=== PATIENT | female | born 1970 | race African-American/Black ===

== ENCOUNTER 2018-02-18 12:05 | Inpatient (IN) | payer OTHER ==
[~2018-02-18] VITALS: Ht 162.6 cm; Wt 80.4 kg
[2018-02-18] VITALS (7 sets, daily range): BP systolic 103–128; BP diastolic 61–84
[~2018-02-18 12:05] MED LIST: CERT400K SQ; METH2.5T PO; METH25VI27 IJ; POTA20TA12 PO
[2018-02-18] MEDS ORDERED: ONDANSETRON PF 4 MG/2 ML VIAL. IV PRN (13:00)
[2018-02-18 13:06] LABS: BASO # 0.1 x10^3/uL (0.0-0.2); BASO % 1 % (0-3); EOS # 0.1 x10^3/uL (0.0-0.7); EOS % 1 % (0-3); LYMPH # 1.6 x10^3/uL (1.0-4.8); LYMPH % 13 % (24-48); MEAN CORPUSCULAR HEMOGLOBIN 31 pg (25-35); MEAN CORPUSCULAR HGB CONC 35 g/dL (31-37); MEAN CORPUSCULAR VOLUME 89 fL (79-100); MONO % 8 % (0-9); NEUT # 9.8 x10^3uL (1.8-7.7); NEUT % 79 % (31-73); PLATELET COUNT 231 x10^3/uL (140-400); RED BLOOD COUNT 3.25 x10^6/uL (3.50-5.40); RED CELL DISTRIBUTION WIDTH 12.9 % (11.5-14.5); WHITE BLOOD COUNT 12.5 x10^3/uL (4.0-11.0)
--- NOTE | 2018-02-18 13:17 | NUR ---
NSG NOTE; ADMISSION DIRECT ADMIT TO ROOM 117 AT 1220 VIA W/C ACCOMP BY SELF FROM DR BALLARD'S OFFICE PT HAS HAD CONSTANT LOWER ABD PAIN X 1 WEEK AND BEEN VOMITING ON ALL FOOD X 6 DAYS. SHE HAS BEEN ABLE TO KEEP SIPS OF WATER DOWN. SHE HAS HAD DIARRHEA FOR 2 DAYS AND HAS BEEN PLACED IN C DIFF PRECAUTIONS
[2018-02-18 13:19] LABS: ALBUMIN 2.7 g/dL (3.4-5.0); ALBUMIN/GLOBULIN RATIO 0.5 (1.0-1.7); CALCIUM 8.8 mg/dL (8.5-10.1); CREATININE 1.3 mg/dL (0.6-1.0); GFR 52.7; POTASSIUM 3.3 mmol/L (3.5-5.1); TOTAL PROTEIN 8.5 g/dL (6.4-8.2)
[2018-02-18] MEDS: IV NORMAL SALINE 1,000ML 1,000 ML IV SCH ×2 (13:26→21:21)
[2018-02-18] MEDS ORDERED: IOHEXOL 300 MG/ML 75 ML VIAL. IV ONE ×2 (14:00→19:30)
[2018-02-18] MEDS ORDERED: IOHEXOL 240 MG/ML 50ML VIAL. PO ONE (14:00)
--- NOTE | 2018-02-18 14:11 | NUR ---
NSG NOTE; POSITIVE SIRS AND SEPSIS SCORES CALLED TO DR BALLARD AT 1408. NEW ANTIBIOTIC ORDERS GIVEN
[2018-02-18] MEDS ORDERED: VANCOMYCIN PER PHARMACY MC PRN (14:15)
--- NOTE | 2018-02-18 14:57 | NUR ---
Pharmacy Vancomycin Dosing Note S:Consulted to monitor and dose vancomycin started 02/18/18. O:POORNIMA ARTEAGA is a 47 year old F with Empiric . Height: 5 feet, 4 inches Weight: 79.430972 kg Cameron Body Weight: 54.70 Adjusted Body Weight: 64.46 Dosing Weight: Actual Other Antibiotics: LEVOFLOXACIN LABS: Last BUN: 11 Last Creatinine: 1.3 Creatinine Clearance: 53.26 Last WBC: 12.5 Last Platelets: 231 Vancomycin Dosing: Loading Dose: 2000 mg x1 Dosing Weight: Actual Target Trough: 10-20 A: Based on: Actual weight and renal function P: 1. Begin Vancomycin 1250 mg IV q24h 2. Follow up Trough level on 02/20/18 at 1530 3. Pharmacy will continue to monitor, follow and adjust therapy as needed. DIMAS LOERA, 02/18/18 [id number]
--- NOTE | 2018-02-18 14:58 | NUR ---
Pharmacy Levofloxacin Dosing Note: Levofloxacin 750mg IV q24hr. CrCl is 53.26. Pharmacy will continue to monitor.
--- NOTE | 2018-02-18 15:36 | RAD ---
CT ABD PELV W/ORAL IV CONTRAST Indication: abd pain, fever, n/v/d for 1 weeks, dehydration Exposure: One or more of the following individualized dose reduction techniques were utilized for this examination: 1. Automated exposure control 2. Adjustment of the mA and/or kV according to patient size 3. Use of iterative reconstruction technique. Comparison: None are available. Contrast: Intravenous contrast was given. Oral contrast was given. FINDINGS: Lower thorax: Mild atelectasis/infiltrate in both lung bases. Liver: Unremarkable Spleen: Unremarkable Pancreas: No acute peripancreatic inflammatory changes Adrenals: No mass Kidneys: Symmetric enhancement. The left lower pole renal collecting system is slightly dilated as compared with the upper pole. Right collecting system is not dilated. The ureters do not appear dilated but are difficult to follow. Gallbladder: No calcified stone Lymph nodes: No significant enlargement Vessels: Aorta is nonaneurysmal. GI tract: No evidence of acute colitis. No evidence of bowel obstruction. Appendix is normal. Reproductive organs: The uterus appears somewhat large. There is a complex cystic-type lesion in the left adnexa. This contains a calcification. The largest hypodense pocket measures 3.6 cm diameter and measures greater than simple fluid, about 28 Hounsfield units. The left adnexal lesion altogether measures about 7 cm long axis. There is a tubular hypodense lesion of the right adnexa, also measures greater than simple fluid. Urinary bladder: Unremarkable. Peritoneum: Mild free pelvic fluid. Abdominal wall:Unremarkable Spine: No significant subluxation or acute fracture. Bones: No destructive process identified. IMPRESSION: 1. There is a complex mass in the left adnexa, with complex hypodense contents as well as a calcification. Smaller hypodense tubular lesion seen in the right adnexa. Findings are nonspecific. In correlation with free pelvic fluid, these could represent tubo-ovarian abscesses, left greater than right. Cystic neoplasm of the ovaries could be considered. Recommend pelvic ultrasound. Findings discussed with Lila, the patient's nurse, at 3:30 PM on February 18, 2018. 2. Mild dilatation of the lower pole the left renal collecting system. This could represent a duplicated system although reason for dilatation of the lower pole is not known. No evidence of obstructing ureteric calculus. If of concern, further evaluation could be obtained with CT urogram. 3. Mild atelectasis/infiltrate in both lung bases. Electronically signed by: Hermann Madison MD (02/18/2018 3:33 PM) [id number]
[2018-02-18] MEDS ORDERED: VANCOMYCIN 2 GM in IV NORMAL SALINE 500ML 500 ML IV ONE (16:00)
--- NOTE | 2018-02-18 18:40 | RAD ---
Pelvic ultrasound History: Left adnexal mass on CT. Comparison: CT abdomen pelvis February 18, 2018. Technique: Transabdominal ultrasound was performed to evaluate the uterine fundus. Endovaginal imaging was performed to evaluate optimally the endometrial canal and lower uterine segment. TRANSABDOMINAL IMAGING Findings: Uterus is enlarged. Uterine length is 12.7 cm. Posterior uterine body demonstrates a large 7 cm leiomyoma. Anterior uterine body demonstrates additional leiomyoma measuring 4.1 cm. Endometrial stripe is estimated at 9 mm Fluid-filled left fallopian tube is seen. Left ovary measures 3.3 x 4.7 x 5.9 cm and is unremarkable. Right ovary measures 2.3 x 3.0 x 3.2 cm and is unremarkable. Left ovary demonstrates normal vascular flow upon Doppler interrogation. ENDOVAGINAL IMAGING Findings: Endometrial thickness is 7 mm. Posterior uterine body demonstrates 5.3 cm leiomyoma. The anterior uterine body demonstrates 4.5 cm leiomyoma. Right ovary measures 2.6 x 3.4 x 5.0 cm and demonstrates a few follicles. Left ovary measures 4.3 x 3.0 x 4.4 cm and demonstrates 3.2 cm cyst. Both ovaries demonstrate normal vascular flow upon Doppler interrogation and are without evidence of torsion. With endovaginal imaging, there appears to be fluid-filled left fallopian tube. Impression: 1. Bilateral hydrosalpinges. Correlate with physical examination regarding possibility of pelvic inflammatory disease. 2. Bilateral ovaries have unremarkable appearance. 3. Uterine leiomyomata. Electronically signed by: Hermann Gonzalez MD (02/18/2018 6:37 PM) [facility]
[2018-02-18] MEDS ORDERED: ACETAMINOPHEN 325 MG TABLET PO ONE (18:58)
[2018-02-18] MEDS ORDERED: MORPHINE SULFATE 2 MG/ML DISP.SYRIN. IV PRN (19:00)
[2018-02-18] MEDS: ACETAMINOPHEN 325 MG TABLET PO PRN (19:02)
[2018-02-18] MEDS ORDERED: CONTRAST GIVEN MC PRN (19:30)
--- NOTE | 2018-02-18 20:15 | NUR ---
1899: Pt transferred from room 117 to ICU bed 3. Upgraded to ICU status. Dx: sepsis, ABD pain, N/V. Pt A/Ox3, flat affect. Placed on monitor showing sinus tach with HR in the 100's. Reports feeling quite weak with significant lower abd pain. Temp elevated at 102.4. Fentanyl and tylenol given per prn orders. Chang placed per order, pt tolerated well. Immediate return of 750cc straw colored urine, sediment present. Sample sent to lab. Pt oriented to unit and POC, V/U. Will monitor closely. 1999: Dr. Lennon made aware of continued positive sepsis screen. New orders received.
[2018-02-18] MEDS ORDERED: ENOXAPARIN ** NOTE DOSE ** SYRINGE SQ SCH (21:00)
[2018-02-18] MEDS: ENOXAPARIN ** NOTE DOSE ** SYRINGE SQ SCH ×2 (21:00→21:22)
[2018-02-18 21:38] LABS: BILIRUBIN,URINE NEG (NEG); CLARITY,URINE HAZY; COLOR,URINE YELLOW; GLUCOSE,URINE NEG (NEG); NITRITE,URINE NEG (NEG); UROBILINOGEN,URINE 1 mg/dL (0.2 mg/dL)
[2018-02-18 21:39] LABS: AMORPHOUS SEDIMENT,UR PRESENT /HPF; BACTERIA,URINE 0 /HPF (0-FEW); SQUAMOUS EPITHELIAL CELL,UR MOD /LPF
[2018-02-18] MEDS: DOXYCYCLINE HYCLATE 100 MG in IV DEXTROSE 5% 100 ML IV SCH (23:09)
[2018-02-19] VITALS (10 sets, daily range): BP systolic 101–115; BP diastolic 48–72
[2018-02-19 06:26] LABS: CALCIUM 7.5 mg/dL (8.5-10.1); CREATININE 1.1 mg/dL (0.6-1.0); GFR 63.9; POTASSIUM 3.3 mmol/L (3.5-5.1)
[2018-02-19] MEDS: IV NORMAL SALINE 1,000ML 1,000 ML IV SCH ×2 (06:37→08:28)
[2018-02-19] MEDS: ACETAMINOPHEN 325 MG TABLET PO PRN (06:37)
[2018-02-19 06:44] LABS: BASO % 0 % (0-3); EOS # 0.1 x10^3/uL (0.0-0.7); EOS % 1 % (0-3); HEMATOCRIT 25.1 % (36.0-47.0); HEMOGLOBIN 8.3 g/dL (12.0-15.5); LYMPH # 1.6 x10^3/uL (1.0-4.8); LYMPH % 10 % (24-48); MEAN CORPUSCULAR HEMOGLOBIN 30 pg (25-35); MEAN CORPUSCULAR HGB CONC 33 g/dL (31-37); MEAN CORPUSCULAR VOLUME 91 fL (79-100); MONO # 1.1 x10^3/uL (0.0-1.1); MONO % 7 % (0-9); NEUT # 13.1 x10^3uL (1.8-7.7); NEUT % 83 % (31-73); PLATELET COUNT 201 x10^3/uL (140-400); RED BLOOD COUNT 2.76 x10^6/uL (3.50-5.40); RED CELL DISTRIBUTION WIDTH 13.3 % (11.5-14.5); WHITE BLOOD COUNT 15.8 x10^3/uL (4.0-11.0)
[2018-02-19] MEDS ORDERED: POTASSIUM CHLORIDE 20 MEQ TABLET.ER. PO SCH (08:00)
[2018-02-19 08:21] LABS: % BANDS 2 % (0-9); % BASOS 0 % (0-3); % EOS 0 % (0-5); % LYMPHS 13 % (24-48); % MONOS 3 % (0-10); % SEGS 82 % (35-66); HYPOCHROMIA PRESENT; OVALOCYTES MANY; PLATELET CLUMP PRESENT; PLT ESTIMATE ADEQUATE (ADEQUATE); POIKILOCYTOSIS PRESENT
[2018-02-19] MEDS: ENOXAPARIN ** NOTE DOSE ** SYRINGE SQ SCH (08:27)
[2018-02-19] MEDS: DOXYCYCLINE HYCLATE 100 MG in IV DEXTROSE 5% 100 ML IV SCH (08:28)
--- NOTE | 2018-02-19 09:48 | RAD ---
PQRS Compliance Statement: One or more of the following individualized dose reduction techniques were utilized for this examination: 1. Automated exposure control 2. Adjustment of the mA and/or kV according to patient size 3. Use of iterative reconstruction technique CT angiography chest with contrast 02/19/2018 INDICATION: Shortness of breath with elevated d-dimer. COMPARISON: None available. TECHNIQUE: Multiple axial CT images of the chest were obtained after the intravenous demonstration of 75 cc Omnipaque 300 per pulmonary embolism protocol. Coronal and sagittal reformats are provided. Maximum intensity projection images of the thoracic vasculature are provided. FINDINGS: Thyroid gland is normal in appearance. There are no pathologically enlarged axillary, mediastinal or hilar lymph nodes. Heart size is within normal limits. There is no pericardial effusion. Thoracic aorta is normal in course and caliber. There is a hypoattenuating lesion in the pericardiophrenic recess measuring 3.3 x 3.2 cm most suggestive of a pericardial cyst, benign congenital anomaly. There is adequate opacification of pulmonary arterial system. There are no filling defects within the pulmonary arteries to suggest acute or chronic pulmonary embolism. Bilateral dependent airspace consolidation is noted at the lung bases which may represent atelectasis versus developing infiltrates. Subpleural groundglass nodule in the left upper lobe measuring 5 mm is favored to be inflammatory. No suspicious solid noncalcified pulmonary nodules are visualized. There are no pleural effusions. No pulmonary vascular congestion or pneumothorax. Visualized portions of the liver, spleen, left adrenal gland and pancreas appear normal. No suspicious osseous abnormality is visualized. IMPRESSION: 1. No evidence for acute pulmonary embolism. 2. Consolidative changes are identified within the dependent portions of the lower lobes bilaterally. Consideration may be given for atelectasis versus infiltrates in the appropriate clinical setting. Short-term follow-up two-view chest radiograph may be of benefit to ensure resolution. Electronically signed by: Joleen Aldana MD (02/19/2018 9:45 AM) [facility]
--- NOTE | 2018-02-19 12:51 | NUR ---
pt discharged at 1245 via EMS to transfer to [facility]. Pt is in stable condition but lethargic. pt is not in any pain at discharge. pt has all belongings with her. pt is on 2LNC, has a 20g IV in her LAC, and a 16F irvin catheter in place. discharge packet given to EMS. report called to TERE Mckeon and she stated she had no further questions for me.
[2018-02-19] MEDS ORDERED: VANCOMYCIN 1.25 GM in IV NORMAL SALINE 250ML 250 ML IV SCH (16:00)
--- NOTE | 2018-02-19 23:34 | DS ---
DATE OF DISCHARGE: 02/19/2018 HOSPITAL COURSE: A 47-year-old female came in. She was having about a week history of abdominal pain, finally came into the office where she was seen and found to have abdominal pain radiating to her back. As a result of this, the patient was admitted to the hospital for further evaluation and treatment. The patient was given IV fluids, IV antibiotics. The patient's scan including that of a CT scan of the abdomen and pelvis demonstrated bilateral hydrosalpinges and a uterine leiomyomata fibroid basically. In any case, the patient was quite ill. She was septic. The patient had a temperature about 102.4 with a pulse of 104. The patient placed on multiple antibiotics for treatment. Respiratory rate was also elevated, although she was at 100%. The patient made very slow progress. Her hemoglobin dropped from 10 to 8.3, but because of the need for an IRRIGATION FLUME [employer]ER and Infectious Disease specialist, the patient was transferred down to per her approval. The patient had no complications while here and was basically stable. Chest x-ray also showed some atelectasis versus infiltrative process. IMPRESSION: Bilateral hydrosalpinx, possible pneumonia, sepsis, hypokalemia, moderate to severe protein malnutrition, elevated D-dimer. PLAN: The patient will continue IV fluids, pain medication. Talk to hospitalist at [facility], patient transferred to their care for multiple specialists not available in our institution. FELISHA BALLARD MD DR: GIL/cirilo JOB#: [id number] / [id number]
[2018-02-23] MEDS ORDERED: METHOTREXATE SODIUM 2.5 MG TABLET PO SCH (09:00)
[2018-03-18] MEDS ORDERED: CERTOLIZUMAB PEGOL 400 MG SQ SCH (09:00)
== END 2018-02-19 12:45 | disposition short-term general hospital (02) | DRG 871 ==
LOC: 1 SOUTH 12:13 → ICU 19:02
PROVIDERS: ADMIT Family Medicine; ATTEND Family Medicine
DX: A41.9 Sepsis, unspecified organism (principal); J18.9 Pneumonia, unspecified organism; E43 Unspecified severe protein-calorie malnutrition; N70.11 Chronic salpingitis; E87.6 Hypokalemia; D25.9 Leiomyoma of uterus, unspecified; Z68.30 Body mass index [BMI] 30.0-30.9, adult; Z82.49 Family history of ischemic heart disease and other diseases of the circulatory system; Z87.39 Personal history of other diseases of the musculoskeletal system and connective tissue; Z98.51 Tubal ligation status; K52.89 Other specified noninfective gastroenteritis and colitis; E86.0 Dehydration; M05.89 Other rheumatoid arthritis with rheumatoid factor of multiple sites
CPT/HCPCS: 36415; 71275; 74177; 76830; 76856; 80048; 80053; 81001; 82150; 82550; 83605; 83690; 84484; 84702; 85007; 85025; 85379; 87040; 87086; 87205; 87491; 87591; 87641; J0694; J1650; J1956; J2405; J3010; J3370; J3490; J7040; Q9967; J7030